=== PATIENT | female | born 1975 | race Two or more races ===

== ENCOUNTER 2019-02-10 14:01 | Outpatient (CLI) | payer OTHER | END 2019-02-10 23:59 | disposition home or self-care (01) | LOC: RAD 14:01 | PROVIDERS: ATTEND Internal Medicine Gastroenterology | DX: K76.0 Fatty (change of) liver, not elsewhere classified (principal); R94.5 Abnormal results of liver function studies | CPT/HCPCS: 74018 ==

== ENCOUNTER 2019-03-20 17:05 | Emergency (ER) | payer OTHER ==
[~2019-03-20] VITALS: Ht 160 cm; Wt 89.6 kg
[2019-03-20 17:15] VITALS: BP 133/77
== END 2019-03-20 18:43 | disposition home or self-care (01) ==
LOC: ED 18:35
DX: R05 Cough (principal); J30.1 Allergic rhinitis due to pollen
CPT/HCPCS: 71046; 99283